=== PATIENT | female | born 2005 | race African-American/Black ===

== ENCOUNTER 2025-05-14 12:05 | Emergency (ER) | payer BC, SELFPAY ==
--- NOTE | ~2025-05-14 | XR_ITS ---
EXAM/PROCEDURE: XR knee LT 3V HISTORY: knee pain, resolved dislocation? COMPARISON: None available. TECHNIQUE: Left knee FINDINGS: No fracture lucency or dislocation. The patella somewhat superiorly positioned. No large joint effusion or suprapatellar effusion seen. No radiopaque foreign body seen. IMPRESSION: No fracture lucency; slightly high riding patella or mild patella nicki. Query if patient's infrapatellar tendon is injured or symptomatic. Reviewed, dictated and finalized at location A. CLERK IMPRESSION: No fracture lucency; slightly high riding patella or mild patella nicki. Query i f patient's infrapatellar tendon is injured or symptomatic.
[2025-05-14 12:38] VITALS: BP 116/62; PULSE 62; RESP 16; TEMP 36.8; O2SAT 99
--- NOTE | 2025-05-14 15:04 | ED_ITS ---
HPI - Extremity Injury (Lower) General Chief Complaint: Extremity Injury, Lower Stated Complaint: knee injury Time Seen by Provider: 05/14/25 14:32 Source: patient Mode of arrival: wheelchair Limitations: no limitations History of Present Illness HPI Narrative: This is a 19-year-old female with no significant past medical history who presents the ED for left knee pain. Patient states that she was doing lunges ea rlier when she felt her knee dislocate. She sat back down carefully and as she sat down ate popped back into place. She states that this did happen 3 years ago and was just placed in a knee immobilizer. She did not require any surgery. She reports left knee pain at this time and has not tried to bend due to the pain. Denies numbness, tingling. Related Data Allergies Allergy/AdvReac Type Severity Reaction Status Date / Time No Known Allergies Allergy Verified 05/14/25 12:08 Review of Systems Review of Systems: Gen.: Denies fevers or chills Eyes: Denies eye pain or visual change ENT: Denies congestion Respiratory: Denies shortness of breath or cough CV: Denies chest pain or palpitations GI: Denies abdominal pain nausea, emesis or diarrhea denies burning, urgency, frequency or hematuria Musculoskeletal: As per HPI Neuro: Denies numbness, tingling, weakness or focal weakness Skin: Denies rash Except as documented, all other systems reviewed and negative Exam Narrative: APPEARANCE: No acute distress, nontoxic, resting in bed HEENT: Normocephalic, atraumatic, OMM RESPIRATORY: No respiratory distress CARDIOVASCULAR: Appears well perfused ABDOMINAL: Nondistended MUSCULOSKELETAl: Tenderness to the left medial joint line small suprapatellar effusion. Minimal range of motion at the left knee due to pain. No tenderness over the patella. NEURO: Awake and alert. SKIN:: Warm, dry. No rashes lesions or abrasions PSYCHIATRIC: Normal affect/mood, Course Vital Signs Vital signs: Vital Signs Temperature 98.3 F 05/14/25 12:38 Pulse Rate 62 05/14/25 12:38 Respiratory Rate 16 05/14/25 12:38 Blood Pressure 116/62 05/14/25 12:38 Pulse Oximetry 99 05/14/25 12:38 Oxygen Delivery Room Air 05/14/25 12:38 Temperature 98.3 F 05/14/25 12:38 Pulse Rate 64 05/14/25 16:12 Respiratory Rate 16 05/14/25 16:12 Blood Pressure 112/63 05/14/25 16:12 Pulse Oximetry 100 05/14/25 16:12 Oxygen Delivery Room Air 05/14/25 12:38 MDM - Extremity Injury (Lower) MDM Narrative Medical decision making narrative: 19-year-old female Presenting for left knee injury. On initial evaluation patient was in no acute distress afebrile, hemodynamic stable. Differentials include but are not limited to: Fracture, sprain, strain, contusion, arterial compromise Notable exam findings: Tenderness to the left medial joint line, pain with passive range of motion, minimal swelling appreciated Notable imaging findings: X-ray left knee showed no fracture but borderline patella [place]. On closer evaluation the patient, I do not think that her symptom is consistent with patellar tendon rupture as her patellas are equally high and she has no t enderness over proximal tibia. Her pain is more over the medial joint line so it is more likely that she has a MCL or meniscal injury. She was concerned about dislocation of the knee, I do not appreciate any changes in pulses so I have a low suspicion for this. She was placed in a knee immobilizer. She is given a referral to Dr. Sahu for further evaluation. Patient was agreeable to this plan. Given strict return precautions Medical Records Attestation: I reviewed the patient's medical records. Lab Data Attestation: I reviewed the patient's lab results. Labs: Lab Results 05/14/25 Range/Units 14:30 POC Urine HCG, Qual Negative (Negative) Imaging Data Attestation: I personally reviewed and interpreted this imaging study as follows: Radiologist's impression: Impressions Knee X-Ray 05/14/25 15:19 IMPRESSION: No fracture lucency; slightly high riding patella or mild patella nicki. Query if patient's infrapatellar tendon is injured or symptomatic. Discharge Plan Discharge Clinical Impression: Knee sprain Qualifiers: Encounter type: initial encounter Involved ligament of knee: unspecified li gament Laterality: right Qualified Code(s): S83.91XA - Sprain of unspecified site of right knee, initial encounter Patient Disposition: Home Condition: Stable Instructions: Antibiotic Form, Knee Sprain (ED), Knee Immobilizer (ED) Additional Instructions: Keep her knee immobilizer when you need to get around. Use crutches. He may take Tylenol and ibuprofen for your pain. Apply ice 15 minutes on 15 minutes off. You were given a referral to Dr. Sahu, orthopedic surgery, follow-up with his office in the next week for re-evaluation. Return to the ED for new or worsening symptoms. Patient Language: Kazakh Follow-up/Referrals: PHYSICIAN NOT ON STAFF,NONSTAFF [Primary Care Provider] Dileep Sahu MD [Physician, Orthopedics] Stand Alone Forms: Work/School Release IP
[2025-05-14 16:00] LABS: BEDSIDEPREGUCG Negative (Negative)
[2025-05-14 16:12] VITALS: BP 112/63; PULSE 64; RESP 16; O2SAT 100
== END 2025-05-14 16:15 | disposition home or self-care (01) ==
PROVIDERS: Emergency Provider Student in an Organized Health Care Education/Training Program
DX: S83.92XA Sprain of unspecified site of left knee, initial encounter (principal); X50.9XXA Other and unspecified overexertion or strenuous movements or postures, initial encounter; Y93.B9 Activity, other involving muscle strengthening exercises
CPT/HCPCS: 73562; 81025; 99283